=== PATIENT | male | born 2000 | race Two or more races ===

== ENCOUNTER 2023-04-21 11:49 | Emergency (ER) | payer OTHER ==
[~2023-04-21] VITALS: Ht 175.3 cm; Wt 59.0 kg
== END 2023-04-21 18:37 | disposition home or self-care (01) ==
LOC: EDBD 11:49 → ER 11:49 → EMR PED 12:20 → ER 12:20 → EMR PED 18:37
DX: S93.401A Sprain of unspecified ligament of right ankle, initial encounter (principal); W18.30XA Fall on same level, unspecified, initial encounter; Y93.67 Activity, basketball; Y92.310 Basketball court as the place of occurrence of the external cause; Y99.9 Unspecified external cause status